=== PATIENT | female | born 1985 | race Two or more races ===

== ENCOUNTER → 2020-11-30 | Outpatient (REF) | payer OTHER | LOC: M SFHCLERA 14:24 | PROVIDERS: ATTEND Nurse Practitioner Family | DX: R10.32 Left lower quadrant pain (principal) ==

== ENCOUNTER → 2020-12-21 | Outpatient (CLI) | payer OTHER ==
[2020-12-21 13:07] LABS: BASO % 0.5 % (0.0-1.0); EOS % 0.7 % (0.0-3.0); HEMATOCRIT 44.5 % (36.0-47.0); HEMOGLOBIN 14.9 g/dl (12.0-15.5); LYMPH # 1.9 10^3/uL (1.5-5.0); LYMPH % 45.2 % (24.0-44.0); MEAN CORPUSCULAR HEMOGLOBIN 31.6 pg (27.0-33.0); MEAN CORPUSCULAR HGB CONC 33.5 g/dl (32.0-36.5); MEAN CORPUSCULAR VOLUME 94.3 fl (80.0-96.0); MONO # 0.4 10^3/uL (0.0-0.8); MONO % 9.6 % (2.0-8.0); NEUTROPHILS # 1.9 10^3/uL (1.5-8.5); NEUTROPHILS % 43.8 % (36.0-66.0); PLATELET COUNT, AUTOMATED 293 10^3/uL (150-450); RED BLOOD COUNT 4.72 10^6/uL (4.00-5.40); WHITE BLOOD COUNT 4.3 10^3/uL (4.0-10.0)
[2020-12-21 13:27] LABS: ALBUMIN 4.2 GM/DL (3.2-5.2); ALT/SGPT 24 U/L (12-78); BLOOD UREA NITROGEN 12 MG/DL (7-18); CALCIUM LEVEL 9.7 MG/DL (8.5-10.1); CARBON DIOXIDE LEVEL 31 MEQ/L (21-32); CHLORIDE LEVEL 105 MEQ/L (98-107); GLOMERULAR FILTRATION RATE > 60.0 (>60); GLUCOSE, FASTING 90 MG/DL (70-100); POTASSIUM SERUM 4.4 MEQ/L (3.5-5.1); SODIUM LEVEL 140 MEQ/L (136-145); TOTAL PROTEIN 7.6 GM/DL (6.4-8.2)
== END ==
LOC: M LAB 11:55
PROVIDERS: ATTEND Nurse Practitioner Family
DX: R10.9 Unspecified abdominal pain (principal)

== ENCOUNTER → 2020-12-24 | Outpatient (CLI) | payer OTHER ==
[~2020-12-24] MED LIST: GASTROGRAFIN SOLUTION 30ML (Q9963) As Ordered ONE; ISOVUE-370 76% 100ML VIAL As Ordered ONE
--- NOTE | 2020-12-24 15:57 | REP ---
INDICATION: LLQ ABD PAIN. COMPARISON: None TECHNIQUE: Axial contrast-enhanced images from the lung bases to the pubic symphysis using oral and 100 cc Isovue 370 intravenous contrast material. Coronal and sagittal reformations obtained. This CT examination was performed using the following dose reduction techniques: Automated exposure control, adjustment of mA and/or kv according to the patient's size, and the use of iterative reconstruction technique. FINDINGS: Liver, spleen, pancreas, gallbladder, bilateral adrenal glands and kidneys are normal. The enteric system demonstrates moderate colonic fecal stasis. There is no bowel obstruction or acute inflammatory process. Pelvis demonstrates heterogeneous enlarged myomatous uterus with 6.5 cm and 7.0 cm fibroids along with smaller less well-defined fibroids. IUD identified. Bladder is unremarkable. Small amount of pelvic free fluid is nonspecific and likely physiologic. No significant ascites. No free air. No intraperitoneal or retroperitoneal adenopathy. Abdominal aorta and vasculature appear normal. Musculoskeletal structures are intact and without acute osseous abnormality. IMPRESSION: 1. Enlarged heterogeneous myomatous uterus. Findings likely related to patient's symptoms. 2. Moderate diffuse colonic fecal stasis. <Electronically signed by Lalo Perrin > 12/24/20 [id number]
== END ==
LOC: M RAD 13:57
PROVIDERS: ATTEND Nurse Practitioner Family
DX: N85.2 Hypertrophy of uterus (principal); D25.9 Leiomyoma of uterus, unspecified
CPT/HCPCS: 74177; Q9963; Q9967

== ENCOUNTER → 2021-04-12 | Outpatient (REF) | payer OTHER | LOC: M SFHCLERA 15:26 | PROVIDERS: ATTEND Nurse Practitioner Family | DX: R03.0 Elevated blood-pressure reading, without diagnosis of hypertension (principal); Z53.9 Procedure and treatment not carried out, unspecified reason ==

== ENCOUNTER → 2021-04-12 | Outpatient (REF) | LOC: M LAB 08:57 | PROVIDERS: ATTEND Nurse Practitioner Adult Health | DX: Z00.00 Encounter for general adult medical examination without abnormal findings (principal) ==

== ENCOUNTER → 2021-05-02 | Outpatient (CLI) | payer OTHER ==
--- NOTE | 2021-05-02 10:32 | REP ---
INDICATION: PAIN IN RIGHT KNEE COMPARISON: None. TECHNIQUE: AP, lateral, bilateral oblique and sunrise views. FINDINGS: [place] view demonstrates sclerosis and fraying along the anterior patella which may represent mild tendinopathy. The remainder of the joint space is and osseous structures are essentially age-appropriate. No evidence for acute or healed injury. No effusion. IMPRESSION: Mild degenerative changes along the anterior patellar margin suggesting tendinopathy. <Electronically signed by Lalo Perrin > 05/02/21 1022
[2021-05-02 11:28] LABS: CHOLESTEROL RISK RATIO 2.707 (<5)
== END ==
LOC: M LAB 10:02
PROVIDERS: ATTEND Nurse Practitioner Family
DX: M25.561 Pain in right knee (principal); R03.0 Elevated blood-pressure reading, without diagnosis of hypertension

== ENCOUNTER 2021-06-10 05:24 | Emergency (ER) | payer OTHER ==
[~2021-06-10] VITALS: Ht 162.6 cm; Wt 68.2 kg
[2021-06-10] MEDS ORDERED: HYDR12.55 PO (05:29)
[2021-06-10 07:39] LABS: BASO % 0.4 % (0.0-1.0); HEMATOCRIT 41.4 % (36.0-47.0); LYMPH # 1.2 10^3/uL (1.5-5.0); LYMPH % 15.1 % (24.0-44.0); MEAN CORPUSCULAR HEMOGLOBIN 31.6 pg (27.0-33.0); MEAN CORPUSCULAR HGB CONC 33.8 g/dl (32.0-36.5); MEAN CORPUSCULAR VOLUME 93.5 fl (80.0-96.0); MONO # 0.5 10^3/uL (0.0-0.8); MONO % 6.6 % (2.0-8.0); NEUTROPHILS # 6.3 10^3/uL (1.5-8.5); NEUTROPHILS % 77.7 % (36.0-66.0); PLATELET COUNT, AUTOMATED 277 10^3/uL (150-450); RED BLOOD COUNT 4.43 10^6/uL (4.00-5.40); WHITE BLOOD COUNT 8.1 10^3/uL (4.0-10.0)
--- NOTE | 2021-06-10 08:01 | REP ---
INDICATION: constipation, abdominal pain. COMPARISON: None. TECHNIQUE: Supine and upright views of the abdomen and pelvis. FINDINGS: Bowel gas pattern is nonspecific although mild fecal stasis and constipation cannot be excluded. No bowel obstruction or perforation. No organomegaly. No abnormal calcifications. No foreign body. Skeletal structures intact/age-appropriate. IMPRESSION: Questionable fecal stasis/constipation. <Electronically signed by Lalo Perrin > 06/10/21 [id number]
[2021-06-10] MEDS ORDERED: BISACODYL 10 MG SUPP PR ONE (08:10)
[2021-06-10 08:24] LABS: ALBUMIN 3.8 GM/DL (3.2-5.2); ALT/SGPT 22 U/L (12-78); BILIRUBIN,DIRECT 0.2 MG/DL (0.0-0.2); BILIRUBIN,TOTAL 0.6 MG/DL (0.2-1.0); BLOOD UREA NITROGEN 14 MG/DL (7-18); CALCIUM LEVEL 9.7 MG/DL (8.5-10.1); CARBON DIOXIDE LEVEL 27 MEQ/L (21-32); CHLORIDE LEVEL 104 MEQ/L (98-107); GLOMERULAR FILTRATION RATE > 60.0 (>60); GLUCOSE, FASTING 107 MG/DL (70-100); LIPASE 105 U/L (73-393); POTASSIUM SERUM 4.2 MEQ/L (3.5-5.1); SODIUM LEVEL 136 MEQ/L (136-145); TOTAL PROTEIN 7.2 GM/DL (6.4-8.2)
[2021-06-10] MEDS ORDERED: COLA100C5 PO (08:48)
[2021-06-10] MEDS ORDERED: MAGNESIUM CITRATE 300 ML BTL PO ONE (08:50)
[2021-06-10 08:54] VITALS: BP 176/87
== END 2021-06-10 09:05 | disposition home or self-care (01) ==
LOC: M ED 05:24
DX: K59.00 Constipation, unspecified (principal)

== ENCOUNTER → 2022-03-08 | Outpatient (CLI) | payer OTHER ==
[~2022-03-08] MED LIST changes: +COLA100C5 PO; -GASTROGRAFIN SOLUTION 30ML (Q9963) As Ordered ONE; +HYDR12.55 PO; -ISOVUE-370 76% 100ML VIAL As Ordered ONE
== END ==
LOC: M PLAIMG 12:39
PROVIDERS: ATTEND Physician Assistant
DX: M17.12 Unilateral primary osteoarthritis, left knee (principal)

== ENCOUNTER → 2022-09-12 | Outpatient (CLI) | payer OTHER | LOC: M PLAIMG 09:53 | PROVIDERS: ATTEND Physician Assistant | DX: M25.561 Pain in right knee (principal) ==

== ENCOUNTER 2022-12-05 08:03 | Day surgery (SDC) | payer OTHER ==
[~2022-12-05] VITALS: Ht 162.6 cm; Wt 66.7 kg
[~2022-12-05 08:03] MED LIST changes: +NS 1,000 ML IV ONE
[2022-12-05] MEDS ORDERED: LIDOCAINE 2% 100MG/5ML SDV (FOR ANES.) As Ordered ONE (10:22)
[2022-12-05] MEDS ORDERED: propofoL 500 MG/50 ML VIAL As Ordered ONE (10:22)
[2022-12-05 10:50] VITALS: BP 169/85
== END 2022-12-05 10:57 | disposition home or self-care (01) ==
LOC: M OPP 08:03
PROVIDERS: ATTEND Internal Medicine Gastroenterology
DX: K64.8 Other hemorrhoids (principal); K58.1 Irritable bowel syndrome with constipation; Z79.899 Other long term (current) drug therapy

== ENCOUNTER → 2024-02-19 | Outpatient (REF) ==
[~2024-02-19] MED LIST changes: -NS 1,000 ML IV ONE
== END ==
LOC: M LAB 13:16
PROVIDERS: ATTEND Nurse Practitioner Adult Health
DX: Z00.00 Encounter for general adult medical examination without abnormal findings (principal)

== ENCOUNTER → 2024-08-20 | Outpatient (REF) ==
[2024-08-22 15:28] LABS: QuantiFERON-TB Gold Plus NEGATIVE (NEGATIVE)
== END ==
LOC: M LAB 11:09
PROVIDERS: ATTEND Family Medicine
DX: Z02.1 Encounter for pre-employment examination (principal)